=== PATIENT | male | born 1955 | race Caucasian/White ===

== ENCOUNTER → 2018-12-31 | Outpatient (REF) | payer SELFPAY ==
[2018-12-31 17:14] LABS: BLOOD UREA NITROGEN 16 MG/DL (7-18); CALCIUM LEVEL 9.5 MG/DL (8.8-10.2); CARBON DIOXIDE LEVEL 25 MEQ/L (21-32); CHLORIDE LEVEL 107 MEQ/L (98-107); CREATININE FOR GFR 0.84 MG/DL (0.70-1.30); GLOMERULAR FILTRATION RATE > 60.0 (>49); GLUCOSE, FASTING 85 MG/DL (70-100); POTASSIUM SERUM 3.7 MEQ/L (3.5-5.1); SODIUM LEVEL 140 MEQ/L (136-145)
[2019-01-03 00:07] LABS: Lyme Disease IgG/IgM Antibodie <0.91 ISR (0.00-0.90); Lyme Disease IgM Ab Quantitati <0.80 index (0.00-0.79)
== END ==
LOC: M SFHCCLAY 10:14
PROVIDERS: ATTEND Nurse Practitioner Family
DX: I10 Essential (primary) hypertension (principal); Z13.1 Encounter for screening for diabetes mellitus

== ENCOUNTER 2019-12-24 15:43 | Inpatient (IN) | payer SELFPAY ==
[~2019-12-24] VITALS: Ht 170.2 cm; Wt 87.0 kg
[2019-12-24] MEDS ORDERED: AMLO1TAB25 PO (16:05)
[2019-12-24] MEDS ORDERED: ACETAMINOPHEN TAB 650MG DOSE (2X325MG) PO PRN (16:15)
[2019-12-24] MEDS: COMBIVENT RESPIMAT 100-20MCG INHALER 4GM INH SCH ×5 (16:28→23:33)
[2019-12-24 16:40] LABS: BASO % 0.3 % (0.0-1.0); HEMATOCRIT 48.9 % (42.0-52.0); HEMOGLOBIN 16.4 g/dl (13.5-17.5); LYMPH # 1.5 10^3/uL (1.5-5.0); LYMPH % 23.4 % (24.0-44.0); MEAN CORPUSCULAR HEMOGLOBIN 29.3 pg (27.0-33.0); MEAN CORPUSCULAR HGB CONC 33.5 g/dl (32.0-36.5); MEAN CORPUSCULAR VOLUME 87.3 fl (80.0-96.0); MONO # 0.6 10^3/uL (0.0-0.8); MONO % 9.8 % (0.0-5.0); NEUTROPHILS # 4.2 10^3/uL (1.5-8.5); NEUTROPHILS % 65.6 % (36.0-66.0); PLATELET COUNT, AUTOMATED 229 10^3/uL (150-450); WHITE BLOOD COUNT 6.4 10^3/uL (4.0-10.0)
[2019-12-24 16:44] LABS: INR 0.88; PROTHROMBIN TIME 12.1 SECONDS (12.5-14.3)
[2019-12-24 16:45] LABS: PARTIAL THROMBOPLASTIN TIME 31.2 SECONDS (24.2-38.5)
[2019-12-24 16:47] LABS: D-DIMER QUANT 1171.16 ng/ml (<500)
[2019-12-24 17:02] LABS: ALBUMIN 3.4 GM/DL (3.2-5.2); ALT/SGPT 55 U/L (12-78); BILIRUBIN,TOTAL 0.4 MG/DL (0.2-1.0); BLOOD UREA NITROGEN 17 MG/DL (7-18); C REACTIVE PROTEIN QUANTITATIV 4.81 MG/DL (0.00-0.30); CALCIUM LEVEL 8.6 MG/DL (8.8-10.2); CARBON DIOXIDE LEVEL 27 MEQ/L (21-32); CHLORIDE LEVEL 101 MEQ/L (98-107); CK-MB VALUE MASS 2.1 NG/ML (<3.6); CPK CREATINE PHOSPHOKINASE 445 U/L (39-308); CREATININE FOR GFR 1.09 MG/DL (0.70-1.30); FERRITIN 1574 NG/ML (26-388); GLOMERULAR FILTRATION RATE > 60.0 (>49); GLUCOSE, FASTING 112 MG/DL (70-100); LDH LACTATE DEHYDROGENASE 431 U/L (87-241); MB/CK RELATIVE INDEX 0.47 (< OR =4); POTASSIUM SERUM 3.7 MEQ/L (3.5-5.1); SODIUM LEVEL 136 MEQ/L (136-145); TOTAL PROTEIN 7.5 GM/DL (6.4-8.2); TROPONIN I 0.02 NG/ML (< 0.10)
--- NOTE | 2019-12-24 17:11 | REP ---
INDICATION: Coronavirus workup. COMPARISON: None. TECHNIQUE: Upright AP chest. Two views presented. FINDINGS: The lungs are symmetrically aerated. There is subtle hazy opacity in the left base suggesting a early infiltrate. Right lung is clear. Heart is not enlarged. There are degenerative changes in the thoracic spine. Pulmonary vasculature is not increased. Osteoarthritic changes are seen in the shoulders. IMPRESSION: Early infiltrates suggested in the left base. Otherwise no acute disease. <Electronically signed by Andrew Robledo > 12/24/19 [id number]
--- NOTE | 2019-12-24 19:20 | REPVR ---
PROCEDURE INFORMATION: Exam: CT Chest Without Contrast Exam date and time: 12/24/2019 6:38 PM Age: 64 years old Clinical indication: Condition or disease; Other: Covid-19 positive; Additional info: Covid PT to aseess lung involvement. ? Chronic lung issues TECHNIQUE: Imaging protocol: Computed tomography of the chest without contrast. 3D rendering (Not supervised by radiologist): MIP and/or 3D reconstructed images were created by the technologist. Radiation optimization: All CT scans at this facility use at least one of these dose optimization techniques: automated exposure control; mA and/or kV adjustment per patient size (includes targeted exams where dose is matched to clinical indication); or iterative reconstruction. COMPARISON: [place] PORTABLE CHEST X-RAY 12/24/2019 4:39 PM FINDINGS: Lungs: There are multifocal, bilateral peripheral ground-glass lung opacities. Areas of septal line thickening amidst bilateral posterior lower lobe ground-glass opacification is consistent with crazy paving. The findings are consistent with stated clinical diagnosis of Covid-19 pneumonia.. Pleural space: Unremarkable. No pneumothorax. No pleural effusion. Heart: Mild coronary atherosclerosis. Aorta: Dilatation of the ascending thoracic aorta with an AP diameter of 4.1 cm. Lymph nodes: Small noncalcified mediastinal lymph nodes and small calcified left hilar lymph nodes. Liver: Diffuse hepatic steatosis. Bones/joints: Mild degenerative spondylosis of the thoracic spine. Severe osteoarthritis of the right glenohumeral joint. Soft tissues: Unremarkable. IMPRESSION: 1. Evidence of prior granulomatous disease. 2. Ascending thoracic aortic aneurysm measuring 4.1 cm in AP diameter. 3. Bilateral multifocal peripheral ground-glass lung opacities and bibasilar crazy paving consistent with Covid-19 pneumonia. Electronically signed by: Gee Perez On 12/24/2019 19:20:48 PM
--- NOTE | 2019-12-24 19:36 | HPEPDOC ---
General Date of Admission Dec 24, 2019 at 17:35 Date of Service: Dec 24, 2019 Chief Complaint The patient is a 64-year-old male admitted with a reason for visit of Covid19. 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 He thought it was his usual cough that happens every winter but it was not improving. His cough was not getting better and he was starting to feel winded so went to the Urgent care today. His cough is dry with no phlegm production. Few more people in his family were also sick but they got better. In the urgent care he was found to be febrile at 102 and his COVID-19 was positive and he was hypoxic. In the ED he was hypoxic to 82% in room air and was needing 4L of oxygen to keep Oxygen sats > 92%. He was febrile at 102 . In about 2 hours in the ED his oxygen requirement increased to 6L to maintain sats at 92%. CT chest was done and showed bilateral ground glass opacities on the peripheries with bibasilar crazy paving appearance. He was admitted for Acute respiratory failure with hypoxia due to COVID-19 pneumonia. Home Medications Scheduled Amlodipine Besylate (Amlodipine Besylate) 10 Mg Tablet, 10 MG PO DAILY, (Reported) Allergies Coded Allergies: No Known Allergies (Unverified , 12/24/19) Past Medical History Medical History HTN Surgical History RIGHT HAND SURGERY FX RIGHT ARM Family History FATHER: , CANCER, MOTHER: , ALZHEIMER 2 BROTHER(S) , 6 SISTER(S) . 8 SON(S) , 10 DAUGHTER(S) - HEALTHY. ONE SISTER WITH CYSTIC FIBROSIS. Social History * Smoker: non-smoker Alcohol: Denies Drugs: denies A-FIB/CHADSVASC A-FIB History Current/History of A-Fib/PAF?: No Review of Systems Constitutional: Reports: Chills, Fever Eyes: Denies: Pain, Vision change ENT: Denies: Head Aches, Ear Pain, Dysphagia Skin: Denies: Rash, Lesions, Breakdown Pulmonary: Reports: Dyspnea, Cough Cardiovascular: Denies: Chest Pain, Palpitations, Orthopnea, Paroxysmal Noc. Dyspnea, Lt Headedness Gastrointestinal: Denies: Nausea, Vomiting, Abdominal Pain, Diarrhea Genitourinary: Denies: Dysuria, Frequency, Incontinence, Retention Hematologic: Denies: Bruising, Bleeding Excessively Musculoskeletal: Denies: Neck Pain, Back Pain, Joint Pain, Muscle Pain, Spasms Physical Examination General Exam: Positive: Alert, Cooperative, No Acute Distress Eye Exam: Positive: PERRLA, Conjunctiva & lids normal, EOMI; Negative: Sclera icteric ENT Exam: Positive: Atraumatic, Mucous membr. moist/pink, Pharynx Normal Neck Exam: Positive: Supple; Negative: JVD, thyromegaly Chest Exam: Positive: Rales (fine crackles), Rhonchi (on deep expiration) Heart Exam: Positive: Tachycardic, Regular Rhythm, Normal S1, Normal S2; Negative: Murmurs, Rubs Telemetry: Positive: No significant arrhythmia Abdomen Exam: Positive: Normal bowel sounds, Soft; Negative: Tenderness, Hepatospenomegaly Extremity Exam: Positive: Normal pulses; Negative: Clubbing, Cyanosis, Edema Skin Exam: Positive: Nl turgor and temperature; Negative: Breakdown, Lesion Neuro Exam: Positive: Normal Speech, Strength at 5/5 X4 ext, Cranial Nerves 3- 12 NL Vital Signs Vital Signs Date Time Temp Pulse Resp B/P (MAP) Pulse Ox O2 Delivery O2 Flow Rate FiO2 12/24/19 18:00 101 27 144/74 (97) 92 Nasal Cannula 6.0 12/24/19 17:30 100.9 Laboratory Data Labs 24H Laboratory Tests 2 12/24/19 16:15: Immature Granulocyte % (Auto) 0.9, Neutrophils (%) (Auto) 65.6, Lymphocytes (%) (Auto) 23.4L, Monocytes (%) (Auto) 9.8H, Eosinophils (%) (Auto) 0.0, Basophils (%) (Auto) 0.3, Neutrophils # (Auto) 4.2, Lymphocytes # (Auto) 1.5, Monocytes # (Auto) 0.6, Eosinophils # (Auto) 0.0, Basophils # (Auto) 0.0, Nucleated Red Blood Cells % (auto) 0.0, Prothrombin Time 12.1, Prothromb Time International Ratio 0.88, Activated Partial Thromboplast Time 31.2, D-Dimer, Quantitative 1171.16H, Anion Gap 8, Glomerular Filtration Rate > 60.0, Lactic Acid Level 1.3, Calcium Level 8.6L, Ferritin 1574H, Total Bilirubin 0.4, Aspartate Amino Transf (AST/SGOT) 60H, Alanine Aminotransferase (ALT/SGPT) 55, Alkaline Phosphatase 56, Lactate Dehydrogenase 431H, Total Creatine Kinase 445H, Creatine Kinase MB 2.1, Creatine Kinase MB Relative Index 0.47, Troponin I 0.02, C-Reactive Protein, Quantitative 4.81H, Total Protein 7.5, Albumin 3.4, Albumin/Globulin Ratio 0.8 CBC/BMP Laboratory Tests 12/24/19 16:15 Microbiology Microbiology 12/24/19 Blood Culture, Received Pending 12/24/19 Blood Culture, Received Pending Assessment/Plan 64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 He thought it was his usual cough that happens every winter but it was not improving. His cough was not getting better and he was starting to feel winded so went to the Urgent care today. His cough is dry with no phlegm production. Few more people in his family were also sick but they got better. In the urgent care he was found to be febrile at 102 and his COVID-19 was positive and he was hypoxic. In the ED he was hypoxic to 82% in room air and was needing 4L of oxygen to keep Oxygen sats > 92%. He was febrile at 102 . In about 2 hours in the ED his oxygen requirement increased to 6L to maintain sats at 92%. CT chest was done and showed bilateral ground glass opacities on the peripheries with bibasilar crazy paving appearance. He was admitted for Acute respiratory failure with hypoxia due to COVID-19 infection. Acute respiratory failure with Hypoxia due to COVID-19 pneumonia oxygen supplementation to maintain sats > 92% DuoNeb MDIs dexamethasone, Remdesevir and Actembra, ASA. will cover with zosyn for any underlying bacterial pneumonia. COVID-19 orderset labs Hepb and HIV negative CBC, CMP, Mag, ferritin, probnp, procalcitonin, troponin, D dimer, crp daily SIRS due to COVID-19 Thoracic aortic aneurysm 4.[address] chest Hypertension amlodipine will restart. H/o Chronic cough CT chest with features of old chronic granulomatous disease. DVT prophylaxis weight based 0.5 mg/ kg body weight BID Plan / VTE VTE Prophylaxis Ordered?: Yes CHANDRIKA ROMAN MD Dec 24, 2019 19:36
[2019-12-24 20:00] VITALS: BP 156/91; O2SAT 94
[2019-12-24] MEDS ORDERED: dexameTHASONE 4 MG/ML 1ML VIAL (J1100 PER 1MG) IV SCH (20:00)
[2019-12-24] MEDS: dexameTHASONE 4 MG/ML 1ML VIAL (J1100 PER 1MG) IV SCH (20:07)
[2019-12-24] MEDS: ENOXAPARIN 60MG/0.6ML SYRINGE (J1650 PER 10MG) SC SCH (20:08)
[2019-12-24] MEDS ORDERED: NS IV ONE ×2 (21:00)
[2019-12-24] MEDS ORDERED: TOCILIZUMAB IV ONE ×2 (21:00)
[2019-12-24 21:05] LABS: HEPATITIS B SURFACE ANTIGEN NEGATIVE (NEGATIVE)
[2019-12-24 21:06] LABS: TRIGLYCERIDES LEVEL 95 MG/DL (<150)
[2019-12-24 21:19] LABS: HIV 1&2 SCREEN CENTAUR NEGATIVE (NEGATIVE)
[2019-12-24] MEDS: PIPERACILLIN/TAZOBACTAM SOD 3.375 GM in D5W MINI-BAG PLUS 50 ML IV SCH (23:10)
[2019-12-25] VITALS (19 sets, daily range): BP systolic 116–135; BP diastolic 78–97; O2SAT 89–97
[2019-12-25] MEDS ORDERED: REMDESIVIR (INVESTIGATIONAL) 200 MG in NS 210 ML IV ONE (02:00)
[2019-12-25] MEDS ORDERED: SODIUM CHLORIDE 0.9% INJ 10 ML SYR IV ONE (04:00)
[2019-12-25] MEDS: COMBIVENT RESPIMAT 100-20MCG INHALER 4GM INH SCH ×5 (04:07→19:45)
[2019-12-25 04:48] LABS: BASO % 0.3 % (0.0-1.0); HEMATOCRIT 45.4 % (42.0-52.0); LYMPH # 0.8 10^3/uL (1.5-5.0); LYMPH % 22.7 % (24.0-44.0); MEAN CORPUSCULAR HEMOGLOBIN 29.1 pg (27.0-33.0); MEAN CORPUSCULAR VOLUME 88.2 fl (80.0-96.0); MONO # 0.2 10^3/uL (0.0-0.8); MONO % 4.2 % (0.0-5.0); NEUTROPHILS # 2.6 10^3/uL (1.5-8.5); NEUTROPHILS % 72.5 % (36.0-66.0); PLATELET COUNT, AUTOMATED 240 10^3/uL (150-450); RED BLOOD COUNT 5.15 10^6/uL (4.30-6.10); WHITE BLOOD COUNT 3.6 10^3/uL (4.0-10.0)
[2019-12-25] MEDS: PIPERACILLIN/TAZOBACTAM SOD 3.375 GM in D5W MINI-BAG PLUS 50 ML IV SCH ×3 (05:00→17:41)
[2019-12-25 05:07] LABS: INR 0.96
[2019-12-25 05:08] LABS: PARTIAL THROMBOPLASTIN TIME 36.9 SECONDS (24.2-38.5)
[2019-12-25 05:12] LABS: ALBUMIN 2.8 GM/DL (3.2-5.2); ALT/SGPT 48 U/L (12-78); BILIRUBIN,DIRECT 0.2 MG/DL (0.0-0.2); BILIRUBIN,TOTAL 0.4 MG/DL (0.2-1.0); BLOOD UREA NITROGEN 17 MG/DL (7-18); CALCIUM LEVEL 7.7 MG/DL (8.8-10.2); CARBON DIOXIDE LEVEL 28 MEQ/L (21-32); CHLORIDE LEVEL 105 MEQ/L (98-107); CREATININE FOR GFR 0.89 MG/DL (0.70-1.30); FERRITIN 1452 NG/ML (26-388); GLOMERULAR FILTRATION RATE > 60.0 (>49); GLUCOSE, FASTING 176 MG/DL (70-100); MAGNESIUM LEVEL 2.3 MG/DL (1.8-2.4); NT-PRO BNP 59 PG/ML (<125); POTASSIUM SERUM 3.8 MEQ/L (3.5-5.1); SODIUM LEVEL 140 MEQ/L (136-145); TOTAL PROTEIN 6.5 GM/DL (6.4-8.2); TRIGLYCERIDES LEVEL 79 MG/DL (<150); TROPONIN I 0.02 NG/ML (< 0.10)
--- NOTE | 2019-12-25 08:04 | ECGEPIP ---
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
[2019-12-25] MEDS: ENOXAPARIN 60MG/0.6ML SYRINGE (J1650 PER 10MG) SC SCH ×2 (09:00→20:10)
[2019-12-25] MEDS: PANTOPRAZOLE 40MG TAB (PROTONIX) PO SCH (09:00)
[2019-12-25] MEDS: ASPIRIN 81 MG ENTERIC TAB PO SCH (09:00)
--- NOTE | 2019-12-25 09:54 | CR ---
CRITICAL CARE CONSULTATION NOTE DATE OF CONSULTATION: 12/24/2019 CHIEF COMPLAINT: I was called to see this 64-year-old male in the emergency department with acute hypoxic respiratory failure. SUBJECTIVE: He has a seven-day history of progressively increasing shortness of breath, cough, minimal sputum production, and fever. His past medical history includes hypertension and chronic cough. He last saw his primary care physician about a year ago. In the emergency department he is hypoxic and tachypneic. PHYSICAL EXAMINATION: At bedside he is ill-appearing. His temperature is 100.9, pulse rate 116, respirations 26, blood pressure 144/74. HEENT: His pupils are round and react. His neck is supple. Oral mucosa is pink. There is no obvious jugular venous distention. Heart sounds are regular without appreciable murmur. Breath sounds are diminished with labored respiratory effort. Crepitant rales are appreciated, right more than left. Chest is symmetric. There is no accessory muscle use at rest but there is with conversation. Abdomen is soft and extremity pulses are palpable x4. DIAGNOSTIC STUDIES: His white cell count is 6.4 with 65% neutrophils, 23% lymphocytes. The hemoglobin is 16.4, hematocrit 48.9, platelet count 229,000. Sodium is 136, potassium 3.7, chloride 101, CO2 27, BUN 17, creatinine 1.09, glucose 112. His lactic acid is only 1.3. AST and ALT are good at 60 and 55 respectively. Ferritin is quite elevated at 1,574. LDH is up to some degree at 431. CRP is up at 4.8. CPK is 445 but the troponin is only 2.1. Coagulation studies showed a PT of 12, PTT of 31 and d-dimer of 1,171. COVID test is positive. Chest x-ray showed patchy right lower lobe infiltrates. CT scan of the chest shows patchy peripheral ground glass opacities bilaterally. ASSESSMENT AND PLAN: The primary problem requiring critical attention is acute hypoxic respiratory failure. We will change his oxygen delivery system to a high-flow system and closely monitor oxygen need. COVID pneumonia. We will initiate remdesivir and tocilizumab. Given the severity of his hypoxemia, he qualifies for steroid therapy and we will follow inflammatory markers closely. Given the increased risk of coagulation, we will use weight-based dosing for subcutaneous Lovenox and place him in the supine posture as much as tolerable. His condition is critical. Prognosis is guarded. One hour and 37 minutes were spent in the provision of bedside critical care and coordination, excluding procedure time. THEE
--- NOTE | 2019-12-25 11:26 | CCN ---
DATE: 12/25/2019 SUBJECTIVE: The patient is seen in the intensive care unit hypoxemic with rapid respiratory rate. No significant complications were seen through the night. OBJECTIVE: VITAL SIGNS: At bedside, his temperature is 98, T-max over the past 24 hours 101.3. Pulse rate is 80, respirations 24-30. He is on 5 liters of oxygen via nasal cannula achieving a saturation now of 97%. Blood pressure is 116/78. INTAKE AND OUTPUT (I&O): For the past 24 hours, 390 in and 0 out. Since midnight 350 in and 0 out. GENERAL APPEARANCE: He is ill-appearing. HEENT: His mucosa is pink. NECK: Supple. No stridor. No adenopathy. CARDIOVASCULAR: Heart sounds are irregular and somewhat distant. RESPIRATORY: Breath sounds with coarse crepitants bilaterally. Some accessory muscle use. ABDOMEN: Soft. EXTREMITIES: Pulses are palpable x4. DIAGNOSTIC STUDIES: Sodium is 140, potassium 3.8, chloride 105, CO2 of 28, BUN 17, creatinine 0.89, glucose 176. White cell count is down to 3.6, neutrophil count 72.5, hemoglobin 15, hematocrit 45.4, platelet count 240,000. His AST is 52, ALT 48, albumin 2.8. The ferritin is down to 1452. Fibrinogen is 500. HIV serology was negative as was hepatitis surface antigen. His procalcitonin is pending as are two blood cultures. MEDICATIONS: On medication review, he received 750 mg of tocilizumab last evening. He is on day two of remdesivir and is receiving empiric Zosyn day #2. ASSESSMENT AND PLAN: The primary problem requiring critical attention is acute hypoxic respiratory failure. Oxygen requirement is some less, but he will continue to require comfort flow oxygen and close monitoring of gas exchange. COVID pneumonia. Ferritin has declined suggesting effect from the tocilizumab. He is on day #2 of remdesivir and dexamethasone in light of his oxygen requirement. He is receiving weight-based Lovenox for hypercoagulability. Hyperglycemia. I suspect this is related to steroids. We will continue close monitoring. Deep vein thrombosis (DVT) prophylaxis is in place. As noted above, he is on weight-based Lovenox due to hypercoagulability associated with COVID pneumonia. Ulcer prophylaxis is in place with daily Protonix. I have reviewed the case with the attending hospitalist. The patients condition is critical. Prognosis is guarded. One and 22 minutes were spent in the provision of bedside critical care and coordination, exclusive of any procedure time. THEE
--- NOTE | 2019-12-25 19:35 | IPNPDOC ---
Subjective Date Seen The patient was seen on 12/25/19. Subjective Chief Complaint/HPI No acute overnight events. Remains on comfort flow oxygen at 5 L now minimally less than last night. No fever this morning. Remains tachypneic. Objective Physical Examination General Exam: Positive: Alert, Cooperative, No Acute Distress Eye Exam: Positive: PERRLA, Conjunctiva & lids normal, EOMI; Negative: Sclera icteric ENT Exam: Positive: Atraumatic, Mucous membr. moist/pink, Pharynx Normal Neck Exam: Positive: Supple; Negative: JVD, thyromegaly Chest Exam: Positive: Rales (fine crackles), Rhonchi (on deep expiration), Other (tachypnia.) Heart Exam: Positive: Tachycardic, Regular Rhythm, Normal S1, Normal S2; Negative: Murmurs, Rubs Telemetry: Positive: No significant arrhythmia Abdomen Exam: Positive: Normal bowel sounds, Soft; Negative: Tenderness, Hepatospenomegaly Extremity Exam: Negative: Clubbing, Cyanosis, Edema Skin Exam: Positive: Nl turgor and temperature; Negative: Breakdown, Lesion Neuro Exam: Positive: Normal Speech, Strength at 5/5 X4 ext, Cranial Nerves 3- 12 NL Assessment /Plan Assessment 64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 He thought it was his usual cough that happens every winter but it was not improving. His cough was not getting better and he was starting to feel winded so went to the Urgent care today. His cough is dry with no phlegm production. Few more people in his family were also sick but they got better. In the urgent care he was found to be febrile and his COVID-19 was positive and he was hypoxic. In the ED he was hypoxic to 82% in room air and was needing 4L of oxygen to keep Oxygen sats > 92%. He was febrile at 102 . In about 2 hours in the ED his oxygen requirement increased to 6L to maintain sats at 92%. CT chest was done and showed bilateral ground glass opacities on the peripheries with bibasilar crazy paving appearance. He was admitted for Acute respiratory failure with hypoxia due to COVID-19 Pneumonia. Acute respiratory failure with Hypoxia due to COVID-19 pneumonia Comfort flow oxygen supplementation to maintain sats > 92% DuoNeb MDIs, dexamethasone 6 mg iv daily, Remdesevir x 5 days. Actembra x 1 dose. ASA. will cover with zosyn for any underlying bacterial pneumonia. COVID-19 orderset labs Hepb and HIV negative CBC, CMP, Mag, ferritin, probnp, procalcitonin, troponin, D dimer, crp daily SIRS due to COVID-19 Thoracic aortic aneurysm 4.[address] chest Hypertension Bp not elevated at this time so will not give any amlodipine. H/o Chronic cough CT chest with features of old chronic granulomatous disease. DVT prophylaxis weight based 0.5 mg/ kg body weight BID Plan/VTE VTE Prophylaxis Ordered?: Yes VS, I&O, 24H, Fishbone Vital Signs/I&O Vital Signs Date Time Temp Pulse Resp B/P (MAP) Pulse Ox O2 Delivery O2 Flow Rate FiO2 12/25/19 09:00 95 Nasal Cannula 5.0 12/25/19 08:00 99.0 90 26 118/81 (93) I&O- Last 24 Hours up to 6 AM 12/25/19 06:00 Intake Total 740 ml Output Total 0 ml Balance 740 ml Laboratory Data 24H LABS Laboratory Tests 2 12/24/19 16:15: Immature Granulocyte % (Auto) 0.9, Neutrophils (%) (Auto) 65.6, Lymphocytes (%) (Auto) 23.4L, Monocytes (%) (Auto) 9.8H, Eosinophils (%) (Auto) 0.0, Basophils (%) (Auto) 0.3, Neutrophils # (Auto) 4.2, Lymphocytes # (Auto) 1.5, Monocytes # (Auto) 0.6, Eosinophils # (Auto) 0.0, Basophils # (Auto) 0.0, Nucleated Red Blood Cells % (auto) 0.0, Prothrombin Time 12.1, Prothromb Time International Ratio 0.88, Activated Partial Thromboplast Time 31.2, D-Dimer, Quantitative 1171.16H, Anion Gap 8, Glomerular Filtration Rate > 60.0, Lactic Acid Level 1.3, Calcium Level 8.6L, Ferritin 1574H, Total Bilirubin 0.4, Aspartate Amino Transf (AST/SGOT) 60H, Alanine Aminotransferase (ALT/SGPT) 55, Alkaline Phosphatase 56, Lactate Dehydrogenase 431H, Total Creatine Kinase 445H, Creatine Kinase MB 2.1, Creatine Kinase MB Relative Index 0.47, Troponin I 0.02, C-Reactive Protein, Quantitative 4.81H, Total Protein 7.5, Albumin 3.4, Albumin/Globulin Ratio 0.8, Triglycerides Level 95, Hepatitis B Surface Antigen NEGATIVE, HIV Antigen/Antibody Combo Qual NEGATIVE 12/24/19 16:52: POC pH (Misc Panel) 7.465H, POC Base Excess (Misc Panel) 0.0, POC Saturated Percent O2 (Misc) 93L, POC pO2 (Misc Panel) 64.0L, POC pCO2 (Misc Panel) 32.3L, POC HCO3 (Misc Panel) 23.3, POC Total CO2 (Misc Panel) 24.0 12/24/19 19:39: 12/25/19 04:30: Immature Granulocyte % (Auto) 0.3, Neutrophils (%) (Auto) 72.5H, Lymphocytes (%) (Auto) 22.7L, Monocytes (%) (Auto) 4.2, Eosinophils (%) (Auto) 0.0, Basophils (%) (Auto) 0.3, Neutrophils # (Auto) 2.6, Lymphocytes # (Auto) 0.8L, Monocytes # (Auto) 0.2, Eosinophils # (Auto) 0.0, Basophils # (Auto) 0.0, Nucleated Red Blood Cells % (auto) 0.0, Prothrombin Time 13.0, Prothromb Time International Ratio 0.96, Activated Partial Thromboplast Time 36.9, Anion Gap 7L, Glomerular Filtration Rate > 60.0, Calcium Level 7.7L, Ferritin 1452H, Total Bilirubin 0.4, Aspartate Amino Transf (AST/SGOT) 52H, Alanine Aminotransferase (ALT/SGPT) 48, Alkaline Phosphatase 49, Troponin I 0.02, Total Protein 6.5, Albumin 2.8L, Albumin/Globulin Ratio 0.8, Triglycerides Level 79, Fibrinogen 500H, Magnesium Level 2.3, Direct Bilirubin 0.2, SO-Nrl-T-Type Natriuretic Peptide 59 CBC/BMP Laboratory Tests 12/24/19 16:15 12/25/19 04:30 Microbiology Microbiology 12/24/19 Blood Culture, Received Pending 12/24/19 Blood Culture, Received Pending CHANDRIKA ROMAN MD Dec 25, 2019 12:47
[2019-12-25] MEDS: dexameTHASONE 4 MG/ML 1ML VIAL (J1100 PER 1MG) IV SCH (20:09)
[2019-12-26] VITALS (8 sets, daily range): BP systolic 110–138; BP diastolic 67–84; O2SAT 88–91
[2019-12-26] MEDS: REMDESIVIR (INVESTIGATIONAL) 100 MG in NS 230 ML IV SCH (02:44)
[2019-12-26] MEDS: SODIUM CHLORIDE 0.9% INJ 10 ML SYR IV SCH (04:02)
[2019-12-26] MEDS: COMBIVENT RESPIMAT 100-20MCG INHALER 4GM INH SCH ×7 (04:04→23:33)
[2019-12-26 05:03] LABS: BASO % 0.1 % (0.0-1.0); HEMATOCRIT 44.1 % (42.0-52.0); HEMOGLOBIN 14.3 g/dl (13.5-17.5); LYMPH # 1.1 10^3/uL (1.5-5.0); LYMPH % 14.9 % (24.0-44.0); MEAN CORPUSCULAR HEMOGLOBIN 28.7 pg (27.0-33.0); MEAN CORPUSCULAR HGB CONC 32.4 g/dl (32.0-36.5); MEAN CORPUSCULAR VOLUME 88.4 fl (80.0-96.0); MONO # 0.5 10^3/uL (0.0-0.8); MONO % 6.1 % (0.0-5.0); NEUTROPHILS % 78.6 % (36.0-66.0); PLATELET COUNT, AUTOMATED 276 10^3/uL (150-450); RED BLOOD COUNT 4.99 10^6/uL (4.30-6.10); WHITE BLOOD COUNT 7.7 10^3/uL (4.0-10.0)
[2019-12-26] MEDS: PIPERACILLIN/TAZOBACTAM SOD 3.375 GM in D5W MINI-BAG PLUS 50 ML IV SCH ×6 (05:03→23:31)
[2019-12-26 05:23] LABS: ALBUMIN 2.7 GM/DL (3.2-5.2); ALT/SGPT 52 U/L (12-78); BILIRUBIN,DIRECT 0.1 MG/DL (0.0-0.2); BILIRUBIN,TOTAL 0.3 MG/DL (0.2-1.0); BLOOD UREA NITROGEN 21 MG/DL (7-18); CALCIUM LEVEL 7.8 MG/DL (8.8-10.2); CARBON DIOXIDE LEVEL 24 MEQ/L (21-32); CHLORIDE LEVEL 109 MEQ/L (98-107); CREATININE FOR GFR 1.16 MG/DL (0.70-1.30); FERRITIN 1524 NG/ML (26-388); GLOMERULAR FILTRATION RATE > 60.0 (>49); GLUCOSE, FASTING 280 MG/DL (70-100); MAGNESIUM LEVEL 2.1 MG/DL (1.8-2.4); NT-PRO BNP 53 PG/ML (<125); POTASSIUM SERUM 3.6 MEQ/L (3.5-5.1); SODIUM LEVEL 143 MEQ/L (136-145); TOTAL PROTEIN 6.3 GM/DL (6.4-8.2); TROPONIN I 0.02 NG/ML (< 0.10)
[2019-12-26] MEDS: PANTOPRAZOLE 40MG TAB (PROTONIX) PO SCH (08:13)
[2019-12-26] MEDS: ASPIRIN 81 MG ENTERIC TAB PO SCH (08:13)
[2019-12-26] MEDS: ENOXAPARIN 60MG/0.6ML SYRINGE (J1650 PER 10MG) SC SCH ×2 (08:14→19:47)
[2019-12-26] MEDS: predniSONE 20 MG TAB PO SCH ×2 (10:46→19:47)
--- NOTE | 2019-12-26 16:09 | IPNPDOC ---
Text Note Date of Service The patient was seen on 12/26/19. NOTE Hospitalist Progress Note Subjective: Patient is sitting upright on the edge of the bed eating breakfast when I spoke with him this morning. He is feeling significantly better. Ever since his arrival he has been ambulatory in the room, he has not required any sort of assistance to use the restroom or anything else. He still does have some shortness of breath, but much improved since yesterday. He does not have any acute complaints at this time, and the remainder of his review systems is negative. Objective: General: Awake, alert, oriented 3. He is in no acute distress. HEENT: Head normocephalic, atraumatic, sclera are nonicteric. Hearing is grossly intact to conversation. Respiratory: Clear to auscultation bilaterally with no wheezes, rales, or rhonchi. Cardiovascular: Regular rate and rhythm, with no rubs, gallops, or murmur. Abdomen: Soft, nontender, nondistended, no hepatosplenomegaly appreciated. Bowel sounds present. Extremities: 2+ pulses in the radial and dorsalis pedis bilaterally. No evidence of clubbing or cyanosis. Assessment: Acute hypoxic respiratory failure Covid 19 pneumonia SIRS secondary to Covid 19 pneumonia Thoracic aortic aneurysm Hypertension History of chronic cough, evidence of old chronic granulomatous disease on CT DVT prophylaxis Plan: Clinically the patient is showing significant improvement, oxygen has now been weaned down to 2 L 7, and we will continue to wean as tolerated, he does not wear oxygen at home. We will continue treatment with remdesivir and steroids. He did receive a dose of tocilizumab on 12/24/19. Blood pressure continues to be within good limits, therefore we'll continue to hold his home dose of amlodipine at this time. Will transfer him to the Covid 19 MedSur floor, telemetry can be discontinued, will continue to monitor oxygen saturation. VS,Fishbone, I+O VS, Fishbone, I+O Laboratory Tests 12/26/19 04:46 Vital Signs Date Time Temp Pulse Resp B/P (MAP) Pulse Ox O2 Delivery O2 Flow Rate FiO2 12/26/19 14:52 98.7 84 26 138/78 (98) 91 Nasal Cannula 2.0 I&O- Last 24 Hours up to 6 AM 12/26/19 06:00 Intake Total 1470 ml Output Total 175 ml Balance 1295 ml ROB SMITH DO Dec 26, 2019 16:09
[2019-12-27] MEDS: REMDESIVIR (INVESTIGATIONAL) 100 MG in NS 230 ML IV SCH (01:50)
[2019-12-27] MEDS: COMBIVENT RESPIMAT 100-20MCG INHALER 4GM INH SCH ×4 (03:00→15:27)
[2019-12-27 03:02] VITALS: O2SAT 94
[2019-12-27] MEDS: SODIUM CHLORIDE 0.9% INJ 10 ML SYR IV SCH (03:10)
[2019-12-27 04:00] VITALS: BP 112/70
[2019-12-27] MEDS: PIPERACILLIN/TAZOBACTAM SOD 3.375 GM in D5W MINI-BAG PLUS 50 ML IV SCH ×3 (05:44→18:00)
[2019-12-27 06:49] LABS: BASO % 0.1 % (0.0-1.0); EOS % 0.1 % (0.0-3.0); HEMATOCRIT 46.1 % (42.0-52.0); HEMOGLOBIN 15.4 g/dl (13.5-17.5); LYMPH # 1.4 10^3/uL (1.5-5.0); LYMPH % 12.1 % (24.0-44.0); MEAN CORPUSCULAR HEMOGLOBIN 29.6 pg (27.0-33.0); MEAN CORPUSCULAR HGB CONC 33.4 g/dl (32.0-36.5); MEAN CORPUSCULAR VOLUME 88.5 fl (80.0-96.0); MONO # 0.8 10^3/uL (0.0-0.8); MONO % 7.4 % (0.0-5.0); NEUTROPHILS % 79.9 % (36.0-66.0); PLATELET COUNT, AUTOMATED 373 10^3/uL (150-450); RED BLOOD COUNT 5.21 10^6/uL (4.30-6.10); WHITE BLOOD COUNT 11.3 10^3/uL (4.0-10.0)
[2019-12-27 06:55] LABS: ALT/SGPT 59 U/L (12-78); BILIRUBIN,DIRECT 0.1 MG/DL (0.0-0.2); BILIRUBIN,TOTAL 0.3 MG/DL (0.2-1.0); BLOOD UREA NITROGEN 17 MG/DL (7-18); CALCIUM LEVEL 8.3 MG/DL (8.8-10.2); CARBON DIOXIDE LEVEL 26 MEQ/L (21-32); CHLORIDE LEVEL 107 MEQ/L (98-107); CREATININE FOR GFR 0.98 MG/DL (0.70-1.30); FERRITIN 1449 NG/ML (26-388); GLOMERULAR FILTRATION RATE > 60.0 (>49); GLUCOSE, FASTING 246 MG/DL (70-100); MAGNESIUM LEVEL 2.3 MG/DL (1.8-2.4); NT-PRO BNP 105 PG/ML (<125); POTASSIUM SERUM 3.6 MEQ/L (3.5-5.1); SODIUM LEVEL 142 MEQ/L (136-145); TOTAL PROTEIN 6.7 GM/DL (6.4-8.2)
[2019-12-27] MEDS: ASPIRIN 81 MG ENTERIC TAB PO SCH (07:39)
[2019-12-27] MEDS: predniSONE 20 MG TAB PO SCH (07:39)
[2019-12-27] MEDS: ENOXAPARIN 60MG/0.6ML SYRINGE (J1650 PER 10MG) SC SCH (07:42)
[2019-12-27] MEDS: PANTOPRAZOLE 40MG TAB (PROTONIX) PO SCH (07:42)
[2019-12-27 08:00] VITALS: BP 136/85
[2019-12-27 11:26] VITALS: O2SAT 96
[2019-12-27 12:00] VITALS: BP 150/86
[2019-12-27] MEDS ORDERED: DEXA4TA PO (15:10)
[2019-12-27 16:00] VITALS: BP 138/79
--- NOTE | 2019-12-27 18:32 | DS.PDOC ---
Discharge Summary General Date of Admission Dec 24, 2019 at 17:35 Date of Discharge 12/27/2019 Discharge Summary PRIMARY CARE PHYSICIAN: AARON Garcia ATTENDING AT TIME OF DISCHARGE: Dr. Rob Smith, DISCHARGE DIAGNOS(E)S: Covid 19 pneumonia Acute hypoxic respiratory failure Hyperglycemia, likely secondary to steroid administration Chronic nonproductive cough HPI & HOSPITAL COURSE: Patient had a 7 day history of progressively worsening shortness of breath, cough, minimal sputum production, and fever. Admitted to the ICU. Treated with remdesivir, tocilizumab, dexamethasone, weight-based dosing of Lovenox, and prophylactic antibiotic Zosyn. Oxygen requirements slowly improved over the next few days, and then today he is able to maintain saturations above 90 on room air. During his entire hospitalization he has been able to get out of bed and use the restroom without any assistance and without becoming lightheaded, and he has been doing so without oxygen for the past couple days because he oxygen line is not long enough. He does have intermittent cough, however this is chronic in nature for him. PHYSICAL EXAMINATION ON DISCHARGE: GENERAL: Awake, alert, oriented 3. He is in no acute distress. CARDIOVASCULAR EXAMINATION: Regular rate and rhythm, with no rubs, gallops, or murmur. RESPIRATORY EXAMINATION: Clear to auscultation bilaterally with no wheezes, rales, or rhonchi. ABDOMINAL EXAMINATION: Soft, nontender, nondistended. Bowel sounds present. EXTREMITIES: No clubbing or edema noted. 2+ pulses in the radial bilaterally. DISPOSITION: Home DISCHARGE INSTRUCTIONS: Patient Will need immediate follow-up with public health upon discharge, and recommend follow-up with PCP within the next 7-14 days. He will need to remain socially isolated per public health guidelines, he is fully aware of this, and has already made arrangements for this when he gets home. Recommend a slow return to normal activity over the next few days as tolerated. Diet as tolerated. If symptoms return, or if you experience worsening of your symptoms, please call your doctor or return to the emergency department. Vital Signs/I&Os Vital Signs Date Time Temp Pulse Resp B/P (MAP) Pulse Ox O2 Delivery O2 Flow Rate FiO2 12/27/19 16:00 98.0 80 28 138/79 (98) 92 Room Air 12/27/19 12:00 2.0 I&O- Last 24 Hours up to 6 AM 10/31/20 06:00 Intake Total 1140 ml Output Total 400 ml Balance 740 ml Laboratory Data Labs 24H Laboratory Tests 2 12/27/19 06:15: Immature Granulocyte % (Auto) 0.4, Neutrophils (%) (Auto) 79.9H, Lymphocytes (%) (Auto) 12.1L, Monocytes (%) (Auto) 7.4H, Eosinophils (%) (Auto) 0.1, Basophils (%) (Auto) 0.1, Neutrophils # (Auto) 9.0H, Lymphocytes # (Auto) 1.4L, Monocytes # (Auto) 0.8, Eosinophils # (Auto) 0.0, Basophils # (Auto) 0.0, Nucleated Red Blood Cells % (auto) 0.0, Fibrinogen 336, Anion Gap 9, Glomerular Filtration Rate > 60.0, Calcium Level 8.3L, Magnesium Level 2.3, Ferritin 1449H, Total Bilirubin 0.3, Direct Bilirubin 0.1, Aspartate Amino Transf (AST/SGOT) 40H, Alanine Aminotransferase (ALT/SGPT) 59, Alkaline Phosphatase 50, WV-Wdk-H-Type Natriuretic Peptide 105, Total Protein 6.7, Albumin 3.0L, Albumin/Globulin Ratio 0.8 CBC/BMP Laboratory Tests 12/27/19 06:15 Microbiology Microbiology 12/24/19 Blood Culture - Preliminary, Resulted No Growth after 72 hours. All specime... 12/24/19 Blood Culture - Preliminary, Resulted No Growth after 72 hours. All specime... Discharge Medications Scheduled Amlodipine Besylate (Amlodipine Besylate) 10 Mg Tablet, 10 MG PO DAILY, (Rep orted) Dexamethasone (Dexamethasone) 4 Mg Tablet, 4 MG PO DAILY Allergies Coded Allergies: No Known Allergies (Unverified , 12/24/19) ROB SMITH DO Dec 27, 2019 18:32
== END 2019-12-27 18:20 | disposition home or self-care (01) | DRG 137 ==
LOC: M ED 15:43 → M ED INP 17:35 → ENRESERV 19:12 → M ICU 19:54 → M 4MAIN 12-26 10:58
PROVIDERS: ADMIT Internal Medicine Nephrology; ATTEND Internal Medicine
DX: U07.1 COVID-19 (principal); J96.01 Acute respiratory failure with hypoxia; I71.2 Thoracic aortic aneurysm, without rupture; J12.89 Other viral pneumonia; I10 Essential (primary) hypertension; R73.9 Hyperglycemia, unspecified